=== PATIENT | female | born 1950 | race Two or more races ===

== ENCOUNTER 2019-11-19 06:36 | Day surgery (SDC) | payer OTHER | END 2019-11-19 11:00 | disposition home or self-care (01) | LOC: AMB-ENDOS 06:36 → ADM 12:45 | PROVIDERS: ATTEND Internal Medicine Gastroenterology | DX: D13.0 Benign neoplasm of esophagus (principal); K22.2 Esophageal obstruction; K44.9 Diaphragmatic hernia without obstruction or gangrene ==

== ENCOUNTER 2019-12-03 11:30 | Outpatient (CLI) | payer OTHER | END 2019-12-03 12:15 | disposition home or self-care (01) | LOC: NUCLEAR 11:30 | PROVIDERS: ATTEND Internal Medicine Sports Medicine | DX: G30.8 Other Alzheimer's disease (principal); M81.8 Other osteoporosis without current pathological fracture; R41.3 Other amnesia | CPT/HCPCS: 77080; 78803; A9557 ==

== ENCOUNTER 2020-01-23 13:42 | Outpatient (CLI) | payer OTHER | END 2020-01-23 13:48 | disposition home or self-care (01) | LOC: MRI 13:42 | PROVIDERS: ATTEND Psychiatry & Neurology Neurology | DX: G31.09 Other frontotemporal neurocognitive disorder (principal) | CPT/HCPCS: 70551 ==

== ENCOUNTER 2020-04-07 11:42 | Outpatient (CLI) | payer OTHER | END 2020-04-07 11:45 | disposition home or self-care (01) | LOC: NUCLEAR 11:42 | PROVIDERS: ATTEND Internal Medicine Sports Medicine | DX: I49.8 Other specified cardiac arrhythmias (principal); R00.2 Palpitations ==

== ENCOUNTER → 2020-06-11 | Outpatient (CLI) | payer OTHER | END | disposition home or self-care (01) | LOC: TOM 09:14 | PROVIDERS: ATTEND Internal Medicine Sports Medicine | DX: K76.0 Fatty (change of) liver, not elsewhere classified (principal); K57.92 Diverticulitis of intestine, part unspecified, without perforation or abscess without bleeding; R10.84 Generalized abdominal pain; K44.9 Diaphragmatic hernia without obstruction or gangrene; K57.90 Diverticulosis of intestine, part unspecified, without perforation or abscess without bleeding ==

== ENCOUNTER 2020-07-04 14:57 | Emergency (ER) | payer OTHER ==
[~2020-07-04] VITALS: Ht 160 cm; Wt 73.0 kg
== END 2020-07-04 18:50 | disposition home or self-care (01) ==
LOC: ER 14:57 → EDBD 15:17 → ER 18:50
DX: R26.2 Difficulty in walking, not elsewhere classified (principal); R20.2 Paresthesia of skin; M62.81 Muscle weakness (generalized); R20.0 Anesthesia of skin; M54.5 Low back pain; Z03.818 Encounter for observation for suspected exposure to other biological agents ruled out

== ENCOUNTER 2020-07-10 12:38 | Outpatient (CLI) | payer OTHER | END 2020-07-10 12:52 | disposition home or self-care (01) | LOC: EDBD 12:38 → MRI 12:38 | PROVIDERS: ATTEND General Practice | DX: R26.2 Difficulty in walking, not elsewhere classified (principal) | CPT/HCPCS: 72148 ==

== ENCOUNTER 2020-08-25 12:09 | Outpatient (CLI) | payer OTHER | END 2020-08-25 12:10 | disposition home or self-care (01) | LOC: LAB 12:09 | PROVIDERS: ATTEND Physical Medicine & Rehabilitation | DX: R05 Cough (principal); R06.02 Shortness of breath; Z03.818 Encounter for observation for suspected exposure to other biological agents ruled out ==

== ENCOUNTER 2020-09-22 06:23 | Day surgery (SDC) | payer OTHER | END 2020-09-22 10:10 | disposition home or self-care (01) | LOC: AMB-ENDOS 06:23 | PROVIDERS: ATTEND Internal Medicine Gastroenterology | DX: K22.2 Esophageal obstruction (principal); K44.9 Diaphragmatic hernia without obstruction or gangrene; R13.14 Dysphagia, pharyngoesophageal phase; Z20.822 Contact with and (suspected) exposure to COVID-19 ==

== ENCOUNTER 2020-09-26 11:25 | Outpatient (CLI) | payer OTHER | END 2020-09-26 11:45 | disposition home or self-care (01) | LOC: MRI 11:25 | PROVIDERS: ATTEND Physical Medicine & Rehabilitation | DX: M54.2 Cervicalgia (principal); M48.02 Spinal stenosis, cervical region | CPT/HCPCS: 72141 ==

== ENCOUNTER 2021-10-26 09:02 | Outpatient (CLI) | payer OTHER | END 2021-10-26 09:16 | disposition home or self-care (01) | LOC: MRI 09:02 | PROVIDERS: ATTEND Family Medicine | DX: F01.50 Vascular dementia, unspecified severity, without behavioral disturbance, psychotic disturbance, mood disturbance, and anxiety (principal) | CPT/HCPCS: 70553; Q9965 ==

== ENCOUNTER 2022-01-01 13:14 | Outpatient (CLI) | payer OTHER | END 2022-01-01 13:15 | disposition home or self-care (01) | LOC: NUCLEAR 13:14 | PROVIDERS: ATTEND Internal Medicine Sports Medicine | DX: M81.0 Age-related osteoporosis without current pathological fracture (principal) ==

== ENCOUNTER 2022-01-14 06:51 | Day surgery (SDC) | payer OTHER | END 2022-01-14 12:45 | disposition home or self-care (01) | LOC: AMB-ENDOS 06:51 | PROVIDERS: ATTEND Internal Medicine Gastroenterology | DX: R13.14 Dysphagia, pharyngoesophageal phase (principal); K44.9 Diaphragmatic hernia without obstruction or gangrene; Z20.822 Contact with and (suspected) exposure to COVID-19 ==